=== PATIENT | female | born 1955 | race Caucasian/White ===

== ENCOUNTER → 2019-11-15 08:03 | Outpatient (CLI) | payer MEDICARE, OTHER, SELFPAY ==
[2019-11-15 11:41] LABS: Coronavirus 19 IgG Antibody Negative (Negative); Coronavirus 19 IgM Antibody Negative (Negative)
== END ==
PROVIDERS: Visit Provider Internal Medicine Gastroenterology
DX: Z01.818 Encounter for other preprocedural examination (principal); Z12.11 Encounter for screening for malignant neoplasm of colon
CPT/HCPCS: 36415; 86328

== ENCOUNTER 2019-11-18 09:28 | Day surgery (SDC) | payer MEDICARE, OTHER, SELFPAY ==
[2019-11-13 08:32] VITALS: BMI 24.7
--- NOTE | 2019-11-14 10:52 | SUR.PREOP ---
11/14/2019 @ 3069--PHONE CALL MADE TO PATIENT. PATIENT UNDERSTANDS THAT LAB WORK AND COVID TESTING NEEDS TO BE COMPLETED @ 0800 ON 11/15/2019. PATIENT UNDERSTANDS IF LAB WORK AND COVID-19 TESTS ARE NOT COMPLETED BY 12PM ON THAT DATE, THE SURGERY SCHEDULED WILL BE CANCELLED AND RESCHEDULED FOR ANOTHER TIME.
[2019-11-18] VITALS (7 sets, daily range): BP systolic 92–151; BP diastolic 46–64; PULSE 62–70; RESP 18; TEMP 36.3–36.9; O2SAT 95–99
[2019-11-18 10:05] LABS: POC Glucose,Bedside 134 (70-110)
--- NOTE | 2019-11-18 10:38 | HMH.ANESCL ---
[facility] Anesthesia Checklist - Structural Data Admitted From: Home Planned Operative Procedure/s: colonoscopy Consent for Planned Operative Procedure(s) Verified: Yes - Airway Assessment C-Spine Mobility Assessed: Yes TMJ Mobility Assessed: Yes Dentition: Good Dentition - Neurological Assessment Level of Consciousness: Awake, Alert, Appropriate - Anesthesia Plan Anesthesia Risk discussed: Yes Anesthesia Plan: Verified ASA Class: III Anesthesia Type: MAC [facility] History I have reviewed the patient's past medical history: Yes Medical History: Reports:: Diabetes Mellitus Type 2, Hyperlipidemia, Hypertension Denies:: Cancer, Diabetes Mellitus Type 1, Internal Pacemaker, MRSA, Seizures *Have you ever received a pneumonia vaccine?: Yes *Have you received a flu vaccine this season?: Yes Anesthesia experience/problems:: none Other Surgeries: Yes: Cardiac Catheterization. No: Pacemaker Amputation: No Fractures: Yes (right ankle) - *Social History Educational Level: Completed Graduate School Smoking Status: Never smoker Alcohol Intake: never Substance Use Type: denies use *Occupational Status:: retired Housing: house Household Members: spouse *Travel in the last 8 weeks: None Family Hx:: Unable to obtain
--- NOTE | 2019-11-18 11:01 | HMH.PROC ---
[facility] Procedure Note Procedure Note:: Colonoscopy Procedure Report: Colonoscopy Endoscopist: Alex Paulson II, MD Referring physician: Jhonathan Celestin MD Date of Procedure: November 18, 2019 Equipment: Olympus 180 variable stiffness pediatric colonoscope Sedation: MAC sedation Indication: Mrs. Mayfield is a 64-year-old female with a history of sigmoid diverticulitis as well as diverticular hemorrhage in the past. She did have a colonoscopy with ga in April 2015 that showed left-sided diverticulosis and 2 diminutive polyps (hyperplastic polyps) which were removed. The patient did undergo sigmoid resection/low anterior resection in 2017 (Dr. Isac Borges laparoscopically) for complicated diverticulitis. The patient has done well. She continues to have some chronic constipation and occasional spotting of blood from internal hemorrhoids. She reports no abdominal pain, weight loss or family history of colon cancer. Procedure: Prior to the procedure, a history and physical exam was performed, and patient's medications and allergies were reviewed. The risks, benefits and alternatives of the sedation and procedure were discussed with the patient. All questions were answered and informed consent was obtained. The patient was brought to the procedure room. Patient identification and proposed procedure were verified by the physician and the nurse. The patient was placed in a left lateral decubitus position and the scope was passed under direct vision. Throughout the procedure, the patient's blood pressure, pulse, and oxygen saturations were monitored continuously. The colonoscopy was accomplished without difficulty. The patient tolerated the procedure well. Findings: On digital rectal examination there was normal rectal tone. There were no external hemorrhoids. The colonoscope was introduced through the anal canal to the rectum and advanced to the cecum. The ileocecal valve and appendiceal orifice were identified. The scope was advanced a short distance into the ileum which appeared grossly normal. The scope was then withdrawn into the colon. The cecum, ascending and transverse colon and mucosa were grossly normal. There were some remaining diverticuli in the remaining descending colon. The anastomosis was well healed and demarcated by a white fibrotic circular circumferential line. The rectum itself was normal. Upon retroflexion within the rectum there were small grade 1 internal hemorrhoids. The preparation was excellent throughout with [place] Preparation Score of 9. The cecal time was 11 minutes. Impression: 1. Remaining descending colon diverticulosis with normal LAR anastomosis 2. Grade 1 internal hemorrhoids Plan: The patient will not require surveillance/screening colonoscopy again for 10 years due to no family history or past/present adenomatous polyps. I would encourage a fiber bowel regimen on a long-term daily maintenance basis. We will discuss additional treatment options including Linzess, Truance, Motegrity or Zelnorm
== END 2019-11-18 11:50 | disposition home or self-care (01) ==
LOC: OUTP 09:31
PROVIDERS: PCP Emergency Medicine; Visit Provider Internal Medicine Gastroenterology
PROC: 0DJD8ZZ Inspection of Lower Intestinal Tract, Via Natural or Artificial Opening Endoscopic (ICD-10-PCS; CPT 45378; principal; 2019-11-18 10:30)
DX: Z86.010 Personal history of colon polyps (principal); Z87.19 Personal history of other diseases of the digestive system; Z12.11 Encounter for screening for malignant neoplasm of colon; K57.30 Diverticulosis of large intestine without perforation or abscess without bleeding; K64.0 First degree hemorrhoids; Z90.49 Acquired absence of other specified parts of digestive tract; I10 Essential (primary) hypertension; E11.9 Type 2 diabetes mellitus without complications; E78.5 Hyperlipidemia, unspecified; Z88.1 Allergy status to other antibiotic agents; Z91.013 Allergy to seafood
CPT/HCPCS: G0105; 82962